=== PATIENT | female | born 1960 | race Caucasian/White ===

== ENCOUNTER 2018-03-22 19:48 | Inpatient (IN) | payer OTHER ==
[~2018-03-22] VITALS: Ht 160 cm; Wt 101.7 kg
[2018-03-22 20:25] LABS: HEMATOCRIT 44.3 % (36.0-46.0); HEMOGLOBIN 14.8 G/DL (11.9-15.5); MCH 28.3 PG (29.0-34.0); MCHC 33.4 G/DL (30.0-36.0); MCV 84.7 FL (83-99); PLATELET COUNT 277 K/uL (156-360); RBC DIS.WIDTH-CV 13.7 % (11.8-14.6); RBC DIS.WIDTH-SD 42.2 % (39-53); RED BLOOD COUNT 5.23 M/uL (3.80-5.20); WHITE BLOOD COUNT 10.1 K/uL (4.1-10.2)
[2018-03-22 20:36] LABS: ALBUMIN 4.4 g/dL (3.2-4.8); CHLORIDE 109 mEq/L (99-109); POTASSIUM 3.9 mEq/L (3.7-5.4); SODIUM 142 mEq/L (136-147)
[2018-03-22 20:38] LABS: GLUCOSE 107 mg/dL (70-99); PTT 29.5 SEC (25-37); TOTAL PROTEIN 7.9 g/dL (6.4-8.3)
[2018-03-22 20:40] LABS: TOTAL BILIRUBIN 0.4 mg/dL (0.0-1.0)
[2018-03-22 20:42] LABS: ALKALINE PHOSPHATASE 98 IU/L (3-129); CREATININE 0.9 mg/dL (0.6-1.3); GFR ESTIMATE (CALCULATED) > 59 mL/min/
[2018-03-22 20:43] LABS: AST (GOT) 21 IU/L (2-34); UREA NITROGEN (BUN) 19 mg/dL (9-23)
[2018-03-22 20:44] LABS: DIRECT BILIRUBIN 0.1 mg/dL (0.0-0.3)
[2018-03-22 20:45] LABS: ALT (GPT) 21 IU/L (3-49)
[2018-03-22 20:47] LABS: TROP-I INTERPRETATION NEGATIVE; TROPONIN-I 0.02 ng/mL (0.0-0.30)
[2018-03-22] MEDS ORDERED: VENTOLIN HFA18 GM IH (22:31)
[2018-03-22] MEDS ORDERED: NORVASC5 MG PO (22:32)
[2018-03-22] MEDS ORDERED: TOPROL XL100 MG PO (22:33)
[2018-03-22 23:37] LABS: TROP-I INTERPRETATION INDETERMINATE; TROPONIN-I 0.59 ng/mL (0.0-0.30)
[2018-03-23] VITALS (9 sets, daily range): BP systolic 138–208; BP diastolic 73–94
[2018-03-23 04:42] LABS: HDL CHOLESTEROL 44 MG/DL (Desirable>=50); LDL CHOLESTEROL 156 mg/dL (Desirable<100); NON-HDL CHOLESTEROL 183 mg/dL (Desirable<160); TOTAL CHOLESTEROL 227 mg/dL (Desirable<200); TRIGLYCERIDES 134 MG/DL (Normal: <150)
[2018-03-23 05:38] LABS: HEMATOCRIT 39.6 % (36.0-46.0); HEMOGLOBIN 12.9 G/DL (11.9-15.5); MCH 27.8 PG (29.0-34.0); MCHC 32.6 G/DL (30.0-36.0); MCV 85.3 FL (83-99); PLATELET COUNT 246 K/uL (156-360); RBC DIS.WIDTH-CV 14.1 % (11.8-14.6); RBC DIS.WIDTH-SD 43.8 % (39-53); RED BLOOD COUNT 4.64 M/uL (3.80-5.20); WHITE BLOOD COUNT 8.7 K/uL (4.1-10.2)
[2018-03-23 05:56] LABS: TROP-I INTERPRETATION POSITIVE; TROPONIN-I 4.47 ng/mL (0.0-0.30)
[2018-03-23 06:00] LABS: CHLORIDE 108 MEQ/L (99-109); CREATININE 0.7 MG/DL (0.6-1.3); GFR ESTIMATE (CALCULATED) > 59 mL/min/; GLUCOSE 121 mg/dL (70-99); POTASSIUM 3.4 MEQ/L (3.7-5.4); SODIUM 140 MEQ/L (136-147); UREA NITROGEN (BUN) 15 mg/dL (9-23)
[2018-03-23 10:55] LABS: HEMOGLOBIN A1c (GLYCOHEMOGLOB) 5.8 % (Below 5.7)
[2018-03-23 18:23] LABS: TROP-I INTERPRETATION POSITIVE; TROPONIN-I 3.85 ng/mL (0.0-0.30)
[2018-03-24 03:40] VITALS: BP 179/81
[2018-03-24 07:16] LABS: BASOPHIL (%) 0.3 % (0-1); EOSINOPHIL (%) 0.2 % (0-5); HEMATOCRIT 45.8 % (36.0-46.0); IMMATURE GRANULOCYTE (%) 0.4 % (0.0-0.7); LYMPHOCYTE (%) 11.6 % (15-42); LYMPHOCYTE COUNT 1.8 K/uL (1.0-2.8); MCH 27.6 PG (29.0-34.0); MCHC 32.8 G/DL (30.0-36.0); MCV 84.2 FL (83-99); MONOCYTE (%) 7.1 % (3-12); MONOCYTE COUNT 1.1 K/uL (0-0.8); NEUTROPHIL (%) 80.4 % (45-76); NEUTROPHIL COUNT 12.1 K/uL (1.8-6.4); PLATELET COUNT 307 K/uL (156-360); RED BLOOD COUNT 5.44 M/uL (3.80-5.20); WHITE BLOOD COUNT 15.1 K/uL (4.1-10.2)
[2018-03-24 07:19] LABS: CHLORIDE 103 MEQ/L (99-109); CREATININE 0.7 MG/DL (0.6-1.3); GFR ESTIMATE (CALCULATED) > 59 mL/min/; GLUCOSE 132 mg/dL (70-99); POTASSIUM 3.6 MEQ/L (3.7-5.4); SODIUM 138 MEQ/L (136-147); UREA NITROGEN (BUN) 9 mg/dL (9-23)
[2018-03-24 07:25] LABS: TROP-I INTERPRETATION POSITIVE; TROPONIN-I 21.03 ng/mL (0.0-0.30)
[2018-03-24 07:34] VITALS: BP 147/74
[2018-03-24 16:13] VITALS: BP 178/90
[2018-03-24 17:51] VITALS: BP 153/70
[2018-03-24 20:05] VITALS: BP 126/69
[2018-03-24 23:45] VITALS: BP 156/75
[2018-03-25 03:00] VITALS: BP 141/71
[2018-03-25 03:15] VITALS: BP 151/85
[2018-03-25 08:58] LABS: CHLORIDE 99 MEQ/L (99-109); POTASSIUM 3.6 MEQ/L (3.7-5.4); SODIUM 135 MEQ/L (136-147)
[2018-03-25 09:04] LABS: CREATININE 0.9 MG/DL (0.6-1.3); GFR ESTIMATE (CALCULATED) > 59 mL/min/; GLUCOSE 155 mg/dL (70-99); UREA NITROGEN (BUN) 14 mg/dL (9-23)
[2018-03-25] MEDS ORDERED: LOSARTAN-HCTZ1 EACH PO (09:50)
[2018-03-25] MEDS ORDERED: ATORVASTATIN CA40 MG PO (09:50)
[2018-03-25] MEDS ORDERED: ASPIR-LOW81 MG PO (09:50)
[2018-03-25] MEDS ORDERED: EFFIENT10 MG PO (09:50)
[2018-03-25 10:09] VITALS: BP 144/84
[2018-03-25 12:20] VITALS: BP 142/72
== END 2018-03-25 13:43 | disposition home or self-care (01) | DRG 247 ==
LOC: EME 19:48 → EDOF 03-23 02:03 → 4EAST 03-23 02:03 → ENRESERV 03-23 02:06 → 4EAST 03-23 02:59 → ENPENDDIS 03-25 → 4EAST 03-25 13:43
PROVIDERS: Hospitalist; Internal Medicine; Internal Medicine Interventional Cardiology; Physician Assistant
DX: I21.4 Non-ST elevation (NSTEMI) myocardial infarction (principal); I16.0 Hypertensive urgency; I11.9 Hypertensive heart disease without heart failure; I25.10 Atherosclerotic heart disease of native coronary artery without angina pectoris; J45.909 Unspecified asthma, uncomplicated; M41.9 Scoliosis, unspecified; E66.01 Morbid (severe) obesity due to excess calories; Z87.891 Personal history of nicotine dependence; Z68.41 Body mass index [BMI] 40.0-44.9, adult
CPT/HCPCS: 71275; 80048; 80061; 80076; 83036; 84484; 85025; 85027; 85347; 85610; 85730; 93005; 93306; 94640; 94799; 99281; 99285; C1725; C1769; C1874; C1887; J0153; J1644; J1650; J2060; J2250; J2270; J2405; J3010; J7030